=== PATIENT | female | born 1950 | race Caucasian/White ===

== ENCOUNTER 2018-06-09 10:44 | Outpatient (CLI) | payer BC, MEDICARE | END 2018-06-09 10:45 | disposition home or self-care (01) | LOC: BICMAMMO 10:44 | PROVIDERS: ATTEND Obstetrics & Gynecology | DX: Z12.31 Encounter for screening mammogram for malignant neoplasm of breast (principal); R92.1 Mammographic calcification found on diagnostic imaging of breast; Z80.3 Family history of malignant neoplasm of breast | CPT/HCPCS: 77063; 77067 ==

== ENCOUNTER 2019-07-07 14:37 | Outpatient (CLI) | payer MEDICARE, OTHER ==
--- NOTE | 2019-07-07 15:19 | MMO ---
Bilateral MAMMO Bilat Screen [facility]. CLINICAL HISTORY: Patient is 69 years old and is seen for screening. The patient has no family history of breast cancer. The patient has no personal history of cancer. VIEWS: The views performed were: bilateral craniocaudal with tomosynthesis and bilateral mediolateral oblique with tomosynthesis. FILMS COMPARED: The present examination has been compared to prior imaging studies performed at [facility] on 11/16/2014, 12/09/2015, 12/20/2016 and 06/09/2018. This study has been interpreted with the assistance of computer-aided detection. MAMMOGRAM FINDINGS: There are scattered fibroglandular densities. There are stable benign appearing calcifications seen in both breasts. There are no suspicious masses, suspicious calcifications, or new areas of architectural distortion. IMPRESSION: THERE IS NO MAMMOGRAPHIC EVIDENCE OF MALIGNANCY. A ROUTINE FOLLOW-UP MAMMOGRAM IN 1 YEAR IS RECOMMENDED. THE RESULTS OF THIS EXAM WERE SENT TO THE PATIENT. ACR BI-RADS Category 2 - Benign finding MAMMOGRAPHY NOTE: 1. A negative mammogram report should not delay a biopsy if a dominant of clinically suspicious mass is present. 2. Approximately 10% to 15% of breast cancers are not detected by mammography. 3. Adenosis and dense breasts may obscure an underlying neoplasm. Reported by: FELISHA VILLARREAL MD Electonically Signed: [id number]
== END 2019-07-07 14:38 | disposition home or self-care (01) ==
LOC: BICMAMMO 14:37
PROVIDERS: ATTEND Obstetrics & Gynecology
DX: Z12.31 Encounter for screening mammogram for malignant neoplasm of breast (principal)
CPT/HCPCS: 77063; 77067

== ENCOUNTER 2020-07-12 15:41 | Outpatient (CLI) | payer MEDICARE, OTHER ==
--- NOTE | 2020-07-12 16:13 | MMO ---
Bilateral MAMMO Bilat Screen [facility]. CLINICAL HISTORY: Patient is 70 years old and is seen for screening. The patient has the following family history of breast cancer: mother. The patient has no personal history of cancer. VIEWS: The views performed were: bilateral craniocaudal with tomosynthesis and bilateral mediolateral oblique with tomosynthesis. FILMS COMPARED: The present examination has been compared to prior imaging studies performed at [facility] on 12/09/2015, 12/20/2016, 06/09/2018 and 07/07/2019. This study has been interpreted with the assistance of computer-aided detection. MAMMOGRAM FINDINGS: There are scattered fibroglandular densities. There are calcifications with grouped or clustered distribution seen in the outer region of the left breast. In the right breast, there are no suspicious masses, calcifications or areas of architectural distortion. IMPRESSION: CALCIFICATIONS IN THE LEFT BREAST REQUIRE ADDITIONAL EVALUATION. RECOMMEND DIAGNOSTIC MAMMOGRAM. THE RESULTS OF THIS EXAM WERE SENT TO THE PATIENT. ACR BI-RADS Category 0 - Incomplete: Need additional imaging evaluation. [facility] will notify the patient of the need for additional imaging services. MAMMOGRAPHY NOTE: 1. A negative mammogram report should not delay a biopsy if a dominant of clinically suspicious mass is present. 2. Approximately 10% to 15% of breast cancers are not detected by mammography. 3. Adenosis and dense breasts may obscure an underlying neoplasm. Reported by: FELISHA VILLARREAL MD Electonically Signed: [id number]
== END 2020-07-12 15:42 | disposition home or self-care (01) ==
LOC: BICMAMMO 15:41
PROVIDERS: ATTEND Obstetrics & Gynecology
DX: Z12.31 Encounter for screening mammogram for malignant neoplasm of breast (principal); R92.1 Mammographic calcification found on diagnostic imaging of breast; Z80.3 Family history of malignant neoplasm of breast
CPT/HCPCS: 77063; 77067

== ENCOUNTER 2020-07-14 14:45 | Outpatient (CLI) | payer MEDICARE, OTHER ==
--- NOTE | 2020-07-14 15:12 | MMO ---
Left Breast MAMMO Unilat Diag [facility]. CLINICAL HISTORY: Patient is 70 years old and is seen for diagnostic exam. The patient has the following family history of breast cancer: mother. The patient has no personal history of cancer. VIEWS: The views performed were: left craniocaudal spot compression magnification; left mediolateral spot compression magnification; and left mediolateral with tomosynthesis. FILMS COMPARED: The present examination has been compared to prior imaging studies performed at [facility] on 12/20/2016, 06/09/2018, 07/07/2019 and 07/12/2020. This study has been interpreted with the assistance of computer-aided detection. MAMMOGRAM FINDINGS: There are scattered fibroglandular densities. There are amorphous or indistinct calcifications with grouped or clustered distribution seen in the middle region of the left breast at 3 o'clock. Findings and recommendations were discussed with the patient prior to leaving the facility. All questions answered. IMPRESSION: CALCIFICATIONS IN THE LEFT BREAST ARE SUSPICIOUS. A STEREOTACTIC BREAST BIOPSY IS RECOMMENDED. THE RESULTS OF THIS EXAM WERE SENT TO THE PATIENT. ACR BI-RADS Category 4 - Suspicious abnormality - biopsy should be considered MAMMOGRAPHY NOTE: 1. A negative mammogram report should not delay a biopsy if a dominant of clinically suspicious mass is present. 2. Approximately 10% to 15% of breast cancers are not detected by mammography. 3. Adenosis and dense breasts may obscure an underlying neoplasm. Reported by: FIDE PIERRE MD Electonically Signed: [id number]
== END 2020-07-14 14:46 | disposition home or self-care (01) ==
LOC: BICMAMMO 14:45
PROVIDERS: ATTEND Obstetrics & Gynecology
DX: R92.1 Mammographic calcification found on diagnostic imaging of breast (principal)
CPT/HCPCS: 77065; G0279

== ENCOUNTER → 2020-07-22 | Day surgery (SDC) | payer MEDICARE ==
--- NOTE | 2020-07-22 09:55 | MMO ---
MAMMO Brst Bx Stereo History: Breast calcifications Comparison: Mammogram July 14, 2020 Findings: Patient was brought to the stereotactic biopsy suite. All questions were answered. Informed consent obtained. Timeout performed. The patient's left breast was prepped and draped in normal sterile fashion. After adequate local anes thesia the left breast 3:00 calcifications were targeted. A total of 6 12-gauge cores were obtained. Patient tolerated the procedure well without complication. Post clip mammogram demonstrated adequate location of the biopsy tract and site. Adequate calcifications within the sample. Impression: Technically successful stereotactic left breast 3:00 calcifications biopsy.
--- NOTE | 2020-07-22 09:56 | MMO ---
MAMMO Surgial Specimen History: Breast calcifications Comparison: Mammogram July 14, 2020 Findings: Adequate calcifications within the sample. Impression: Adequate calcifications within the sample.
--- NOTE | 2020-07-22 09:57 | MMO ---
MAMMO Diag Post Proc Ltd Lt History: Post clip mammogram Comparison: Mammogram July 14, 2020 Findings: The mammogram was performed with clip slightly extruded laterally through the tract. Impression: Satisfactory location of the biopsy clip.
== END ==
LOC: MAMMO 08:41
PROVIDERS: ATTEND Obstetrics & Gynecology
PROC: 0H9U3ZX Drainage of Left Breast, Percutaneous Approach, Diagnostic (ICD-10-PCS; principal; 2020-07-22)
DX: D24.2 Benign neoplasm of left breast (principal); N60.22 Fibroadenosis of left breast; R92.0 Mammographic microcalcification found on diagnostic imaging of breast
CPT/HCPCS: 19081; 76098; 88305; 88341; 88342

== ENCOUNTER 2021-07-20 15:33 | Emergency (ER) | payer MEDICARE ==
[2021-07-20] MEDS ORDERED: HYDROcodone/Acetaminophen 5/325 mg Tablet ONE (16:13)
== END 2021-07-20 17:02 | disposition home or self-care (01) ==
LOC: ERS 15:33
DX: S42.202A Unspecified fracture of upper end of left humerus, initial encounter for closed fracture (principal); W18.39XA Other fall on same level, initial encounter; K21.9 Gastro-esophageal reflux disease without esophagitis; E03.9 Hypothyroidism, unspecified; Z79.899 Other long term (current) drug therapy

== ENCOUNTER 2021-07-25 13:40 | Outpatient (CLI) | payer MEDICARE ==
[2021-07-26 07:41] LABS: SARS-CoV-2 NAA Rapid Test Not Detected (NotDetected)
== END 2021-07-25 13:41 | disposition home or self-care (01) ==
LOC: LABBT 13:40
PROVIDERS: ATTEND Orthopaedic Surgery
DX: Z01.812 Encounter for preprocedural laboratory examination (principal); Z20.822 Contact with and (suspected) exposure to COVID-19
CPT/HCPCS: U0003; U0005; U0002

== ENCOUNTER 2021-07-26 10:24 | Day surgery (SDC) | payer MEDICARE ==
[2021-07-25 13:18] VITALS: BMI 39.5
[2021-07-26] MEDS ORDERED: Midazolam HCl 2 mg/2 ml Vial ONE (11:31)
[2021-07-26] MEDS ORDERED: Ropivacaine 0.5% HCl/PF (150 MG/30 ML VIAL) ONE (11:32)
[2021-07-26] MEDS ORDERED: Fentanyl 100 MCG/2 ML VIAL ONE ×2 (11:32→11:43)
[2021-07-26] MEDS ORDERED: Lidocaine 1% (PF) 30 ML VIAL ONE (12:01)
[2021-07-26] MEDS ORDERED: Clindamycin/D5W 900 mg/50 ml Premix Bag ONE (12:12)
[2021-07-26] MEDS ORDERED: Levofloxacin 500 mg/D5W 100 ml Premix Bag ONE (12:12)
[2021-07-26] MEDS ORDERED: Rocuronium Bromide 10 MG/ML (10ML VIAL) ONE (12:34)
[2021-07-26] MEDS ORDERED: Glycopyrrolate 0.2 MG/ML 5 ML SYRINGE ONE (12:34)
[2021-07-26] MEDS ORDERED: Ondansetron PF 4 MG/2 ML Vial ONE (12:34)
[2021-07-26] MEDS ORDERED: Ketorolac Tromethamine 30 MG/ML VIAL ONE (12:34)
[2021-07-26] MEDS ORDERED: PROPOFOL 200 MG/20 ML VIAL ONE (12:34)
[2021-07-26] MEDS ORDERED: Dexamethasone 20 MG/5 ML VIAL ONE (12:34)
[2021-07-26] MEDS ORDERED: Phenylephrine 10 MG/ML VIAL ONE (12:34)
[2021-07-26] MEDS ORDERED: traMADol HCl 50 MG TAB PO PRN ×2 (12:45)
[2021-07-26] MEDS ORDERED: Promethazine HCl 25 MG/ML VIAL IM PRN (12:45)
[2021-07-26] MEDS ORDERED: Ketorolac Tromethamine 30 MG/ML VIAL IVP PRN (12:45)
[2021-07-26] MEDS ORDERED: HYDROcodone/Acetaminophen 5/325 mg Tablet PO PRN ×2 (12:45)
[2021-07-26] MEDS ORDERED: Ropivacaine 0.2% 550 ML 550 ML NERVE BLCK SCH (12:45)
[2021-07-26] MEDS ORDERED: Zolpidem Tartrate 5 MG TAB PO PRN (12:45)
[2021-07-26] MEDS ORDERED: Ondansetron PF 4 MG/2 ML Vial IVP PRN (12:45)
== END 2021-07-26 17:45 | disposition home or self-care (01) ==
LOC: SDC 10:24
PROVIDERS: ATTEND Orthopaedic Surgery
PROC: 0PSD04Z Reposition Left Humeral Head with Internal Fixation Device, Open Approach (ICD-10-PCS; principal; 2021-07-26)
DX: S42.292A Other displaced fracture of upper end of left humerus, initial encounter for closed fracture (principal); S42.252A Displaced fracture of greater tuberosity of left humerus, initial encounter for closed fracture; S42.262A Displaced fracture of lesser tuberosity of left humerus, initial encounter for closed fracture; J45.909 Unspecified asthma, uncomplicated; E07.9 Disorder of thyroid, unspecified; Z79.899 Other long term (current) drug therapy; Z88.0 Allergy status to penicillin; W19.XXXA Unspecified fall, initial encounter
CPT/HCPCS: 23615; 73030; 76000; C1713 ×6; J1100; J1885; J1956; J2001; J2250; J2370; J2405; J2704; J2795; J3010; J3490

== ENCOUNTER 2023-03-01 10:51 | Day surgery (SDC) | payer MEDICARE ==
[2023-02-27 14:00] VITALS: BMI 33.4
[2023-03-01] MEDS ORDERED: Lidocaine 1% MPF 2 ML VIAL ONE (12:50)
[2023-03-01] MEDS ORDERED: Midazolam HCl 2 mg/2 ml Vial ONE (14:27)
[2023-03-01] MEDS ORDERED: fentaNYL 50 mcg/mL 1 mL Vial ONE (14:27)
[2023-03-01] MEDS ORDERED: Ketamine 50 MG/ML (10ML VIAL) ONE (14:28)
[2023-03-01] MEDS ORDERED: fentaNYL PF 100 MCG/2 ML SYRINGE ONE (15:13)
[2023-03-01] MEDS ORDERED: HYDROcodone/Acetaminophen 5/325 mg Tablet ONE ×2 (16:48→17:28)
== END 2023-03-01 18:15 | disposition home or self-care (01) ==
LOC: MRI 10:51
PROVIDERS: ATTEND Anesthesiology
DX: M51.16 Intervertebral disc disorders with radiculopathy, lumbar region (principal); E03.9 Hypothyroidism, unspecified; I10 Essential (primary) hypertension; F40.240 Claustrophobia; E66.9 Obesity, unspecified; E78.5 Hyperlipidemia, unspecified; Z79.890 Hormone replacement therapy; Z79.899 Other long term (current) drug therapy; Z68.33 Body mass index [BMI] 33.0-33.9, adult
CPT/HCPCS: 72148; J2250; J3010

== ENCOUNTER 2023-03-06 06:23 | Day surgery (SDC) | payer MEDICARE ==
[2023-03-05 09:44] VITALS: BMI 33.4
[2023-03-06] MEDS ORDERED: Lidocaine 2% 6 ML (Jelly) SYR ONE (06:38)
[2023-03-06] MEDS ORDERED: Bupivacaine HCl 0.5%/Epinephrine 1:200,000/PF 30 ml Vial ONE (07:11)
[2023-03-06] MEDS ORDERED: Thrombin 5000 UNITS/5 ML VIAL ONE (07:11)
[2023-03-06] MEDS ORDERED: Sodium Chloride 0.9% 100 ML ONE ×2 (07:29→11:41)
[2023-03-06] MEDS ORDERED: PHENYLEPHRINE-NS 100 MCG/ML 10 ML SYRINGE ONE (07:29)
[2023-03-06] MEDS ORDERED: Rocuronium Bromide 10 MG/ML (10ML VIAL) ONE (07:29)
[2023-03-06] MEDS ORDERED: Dexamethasone 20 MG/5 ML VIAL ONE (07:29)
[2023-03-06] MEDS ORDERED: PROPOFOL 200 MG/20 ML VIAL ONE (07:29)
[2023-03-06] MEDS ORDERED: Lidocaine 1% PF 5 ML VIAL ONE (07:29)
[2023-03-06] MEDS ORDERED: Ketorolac Tromethamine 30 MG/ML VIAL ONE (07:29)
[2023-03-06] MEDS ORDERED: Ondansetron PF 4 MG/2 ML Vial ONE (07:29)
[2023-03-06] MEDS ORDERED: CEFAZOLIN 2 GM VIAL ONE ×2 (07:29→11:41)
[2023-03-06] MEDS ORDERED: fentaNYL 50 mcg/mL 1 mL Vial ONE ×3 (07:54→10:20)
[2023-03-06 08:48] LABS: Anion Gap 17 mmol/L (10-20); BUN (Urea Nitrogen) 20 mg/dL (9.8-20.1); Calc. Creatinine Clearance 110 mL/min (70-130); Calcium 10.2 mg/dL (7.8-10.44); Carbon Dioxide 24 mmol/L (23-31); Chloride 106 mmol/L (98-107); Estimated GFR 86; Glucose 103 mg/dL (83-110); Potassium 4.4 mmol/L (3.5-5.1); Sodium 143 mmol/L (136-145)
[2023-03-06] MEDS ORDERED: SUGAMMADEX SODIUM 200 MG/2 ML VIAL ONE (09:32)
[2023-03-06] MEDS ORDERED: HYDROcodone/Acetaminophen 5/325 mg Tablet ONE (11:00)
== END 2023-03-06 12:45 | disposition home or self-care (01) ==
LOC: SDC 06:23
PROVIDERS: ATTEND Neurological Surgery
PROC: 01NB0ZZ Release Lumbar Nerve, Open Approach (ICD-10-PCS; principal; 2023-03-06)
PROC: 0SB20ZZ Excision of Lumbar Vertebral Disc, Open Approach (ICD-10-PCS; 2023-03-06)
DX: M51.26 Other intervertebral disc displacement, lumbar region (principal); M48.062 Spinal stenosis, lumbar region with neurogenic claudication; E03.9 Hypothyroidism, unspecified; Z79.890 Hormone replacement therapy; Z79.899 Other long term (current) drug therapy; Z90.49 Acquired absence of other specified parts of digestive tract; Z88.0 Allergy status to penicillin
CPT/HCPCS: 63047; 63048; 80048; 93005; J3010; 93010; C1713; J1100; J1885; J2405; J2704; J3490

== ENCOUNTER 2023-10-07 13:01 | Outpatient (CLI) | payer MEDICARE | END 2023-10-07 13:02 | disposition home or self-care (01) | LOC: BICMAMMO 13:01 | PROVIDERS: ATTEND Obstetrics & Gynecology | DX: Z12.31 Encounter for screening mammogram for malignant neoplasm of breast (principal); Z80.3 Family history of malignant neoplasm of breast; Z91.89 Other specified personal risk factors, not elsewhere classified | CPT/HCPCS: 77063; 77067 ==